=== PATIENT | female | born 1970 | race Two or more races ===

== ENCOUNTER 2023-08-15 20:43 | Emergency (ER) | payer OTHER ==
[~2023-08-15] VITALS: Ht 152.4 cm; Wt 80.7 kg
[2023-08-15] MEDS ORDERED: LEVOTHYROXINE25 MCG (20:50)
[2023-08-15 21:47] LABS: HEMATOCRIT 36.6 % (36.0-45.00); HEMOGLOBIN 11.8 g/dL (12.0-15.00); MEAN CELL VOLUME 84.4 fL (80.00-100.00); MEAN CORPUSCULAR HEMOGLOBIN 27.3 pg (27.00-32.0); MEAN CORPUSCULAR HGB CONC 32.3 g/dl (32.0-36.0); PLATELET COUNT 244 K/uL (150-450); RED BLOOD COUNT 4.34 M/uL (4.00-6.00); RED CELL DISTRIBUTION WIDTH 15.5 % (11.5-14.5)
[2023-08-15 22:07] LABS: CALCIUM 8.9 mg/dL (8.5-10.1); CREATININE SERUM 1.36 mg/dL (0.55-1.02); GFR 40.99; POTASSIUM 3.79 mEq/L (3.5-5.1)
== END 2023-08-15 22:22 | disposition home or self-care (01) ==
LOC: ER 20:44
PROVIDERS: General Practice
DX: R42 Dizziness and giddiness (principal)